=== PATIENT | female | born 1990 | race Caucasian/White ===

== ENCOUNTER 2019-02-14 22:27 | Emergency (ER) | payer OTHER ==
[~2019-02-14] VITALS: Ht 152.4 cm; Wt 52.3 kg
[2019-02-14] MEDS ORDERED: NS 1,000 ML IV ONE (23:00)
[2019-02-14] MEDS ORDERED: ONDANSETRON 4MG/2ML VIAL (J2405) IV ONE (23:00)
[2019-02-14] MEDS ORDERED: KETOROLAC 30 MG/ML VIAL (J1885) IV ONE (23:00)
[2019-02-14] MEDS ORDERED: LOES1TAB12 PO (23:18)
[2019-02-15 00:04] LABS: BASO % 0.4 % (0.0-1.0); HEMATOCRIT 44.6 % (36.0-47.0); HEMOGLOBIN 15.7 g/dl (12.0-15.5); LYMPH # 0.5 10^3/uL (1.5-6.5); LYMPH % 4.5 % (24.0-44.0); MEAN CORPUSCULAR HEMOGLOBIN 31.2 pg (27.0-33.0); MEAN CORPUSCULAR HGB CONC 35.2 g/dl (32.0-36.5); MEAN CORPUSCULAR VOLUME 88.5 fl (80.0-96.0); MONO # 0.3 10^3/uL (0.0-0.8); MONO % 2.8 % (0.0-5.0); NEUTROPHILS # 9.7 10^3/uL (1.8-7.7); NEUTROPHILS % 91.5 % (36.0-66.0); PLATELET COUNT, AUTOMATED 296 10^3/uL (150-450); RED BLOOD COUNT 5.04 10^6/uL (4.00-5.40); WHITE BLOOD COUNT 10.6 10^3/uL (4.0-10.0)
[2019-02-15 00:05] LABS: ALBUMIN 3.9 GM/DL (3.2-5.2); ALT/SGPT 13 U/L (12-78); BILIRUBIN,DIRECT 0.2 MG/DL (0.0-0.2); BILIRUBIN,TOTAL 0.6 MG/DL (0.2-1.0); BLOOD UREA NITROGEN 21 MG/DL (7-18); CALCIUM LEVEL 8.7 MG/DL (8.5-10.1); CARBON DIOXIDE LEVEL 25 MEQ/L (21-32); CHLORIDE LEVEL 107 MEQ/L (98-107); CREATININE FOR GFR 0.82 MG/DL (0.55-1.30); GLOMERULAR FILTRATION RATE > 60.0 (>60); GLUCOSE, FASTING 107 MG/DL (70-100); LIPASE 321 U/L (73-393); SODIUM LEVEL 141 MEQ/L (136-145); TOTAL PROTEIN 6.8 GM/DL (6.4-8.2)
[2019-02-15] MEDS ORDERED: ISOVUE-370 76% 100ML VIAL (Q9967) As Ordered ONE (00:18)
--- NOTE | 2019-02-15 01:43 | REPVR ---
EXAM: CT Abdomen and Pelvis With Contrast EXAM DATE/TIME: 02/15/2019 12:17 AM CLINICAL HISTORY: 28 years old, female; Upper abdominal pain. TECHNIQUE: Imaging protocol: Axial computed tomography images of the abdomen and pelvis with intravenous contrast. Coronal and sagittal reformatted images were created and reviewed. Radiation optimization: All CT scans at this facility use at least one of these dose optimization techniques: automated exposure control; mA and/or kV adjustment per patient size (includes targeted exams where dose is matched to clinical indication); or iterative reconstruction. Contrast material: ISO 370 Contrast volume: 100 ml Contrast route: IV COMPARISON: No relevant prior studies available. FINDINGS: Lower thorax: Unremarkable. ABDOMEN: Liver: Unremarkable. No liver lesion is seen. The contour of the liver is smooth. No hepatomegaly is noted. Gallbladder and bile ducts: No calcified gallstones are seen. No gallbladder wall thickening, pericholecystic fluid, or pericholecystic inflammatory changes are identified. No dilation of the intrahepatic or extrahepatic bile ducts is noted. Pancreas: Normal. No ductal dilation. Spleen: Normal. No splenomegaly. Adrenals: Normal. No mass. Kidneys and ureters: The kidneys are normal in appearance. No renal lesion is identified. No calculi are seen in the kidneys or ureters. There is no hydronephrosis or hydroureter. Stomach and bowel: There is thickening of the wall of the jejunum in the left upper quadrant of the abdomen, and there is dilation of the jejunum more proximally by up to 3.3 cm in diameter, which is fluid-filled (images 22-31 of the coronal series 202) and these findings that can be seen with a jejunitis resulting in a small bowel ileus. No intussusception, colitis, diverticulosis, diverticulitis, pneumatosis intestinalis, or internal hernia is noted. Appendix: Normal. No evidence for appendicitis. PELVIS: Bladder: Unremarkable. No calculi are noted in the bladder. Reproductive: The anteverted uterus is unremarkable. There is a 2 cm corpus luteal cyst in the left ovary. The right ovary is unremarkable. ABDOMEN and PELVIS: Intraperitoneal space: There is a trace amount of free fluid in the cul-de-sac. No intra-abdominal abscess or intraperitoneal free air is noted. Bones/joints: The imaged bony structures are intact. There is no suspicious osteolytic or osteoblastic lesion. Soft tissues: Unremarkable. Vasculature: The abdominal aorta is normal in caliber and patent. The iliac arteries, common femoral arteries, renal arteries, celiac artery, superior mesenteric artery, and inferior mesenteric artery are patent. The renal veins, hepatic veins, portal veins, splenic vein, superior mesenteric vein, and inferior mesenteric vein are patent. Lymph nodes: Normal. No enlarged lymph nodes. IMPRESSION: Thickening of the wall of the jejunum in the left upper quadrant of the abdomen, and there is dilation of the jejunum more proximally by up to 3.3 cm in diameter, which is fluid-filled and these findings that can be seen with a jejunitis resulting in a small bowel ileus. Electronically signed by: Jared Sheikh On 02/15/2019 01:43:09 AM
[2019-02-15] MEDS ORDERED: ONDA4TAB6 PO (02:09)
[2019-02-15] MEDS ORDERED: ONDANSETRON 4 MG ORAL DISINTEGRATING TAB (Q0162 PER 1MG) PO ONE (02:15)
[2019-02-15] MEDS ORDERED: ONDANSETRON 4MG/2ML VIAL (J2405) IV ONE (02:15)
[2019-02-15 02:40] VITALS: BP 136/72
== END 2019-02-15 02:36 | disposition home or self-care (01) ==
LOC: M ED 22:27
DX: K56.7 Ileus, unspecified (principal); K52.9 Noninfective gastroenteritis and colitis, unspecified; Z79.3 Long term (current) use of hormonal contraceptives
CPT/HCPCS: 74177; 80048; 80076; 81001; 81025; 83690; 85025; 87086; 96361; 96374; 96375; 96376; 99284; J1885; J2405; Q0162; Q9967

== ENCOUNTER 2023-04-02 10:16 | Day surgery (SDC) | payer OTHER ==
[~2023-04-02] VITALS: Ht 152.4 cm; Wt 55.9 kg
[~2023-04-02 10:16] MED LIST: ACETAMINOPHEN *IV* 1,000 MG IV ONE; BUPR300T92 PO; LOES1TAB12 PO; ONDA4TAB6 PO; VENL150C43 PO
[2023-04-02 10:55] LABS: HEMATOCRIT 40.1 % (36.0-47.0); HEMOGLOBIN 13.7 g/dl (12.0-15.5); MEAN CORPUSCULAR HEMOGLOBIN 30.6 pg (27.0-33.0); MEAN CORPUSCULAR HGB CONC 34.2 g/dl (32.0-36.5); MEAN CORPUSCULAR VOLUME 89.7 fl (80.0-96.0); PLATELET COUNT, AUTOMATED 299 10^3/uL (150-450); RED BLOOD COUNT 4.47 10^6/uL (4.00-5.40); WHITE BLOOD COUNT 5.2 10^3/uL (4.0-10.0)
[2023-04-02] MEDS ORDERED: LR 1,000 ML IV SCH ×2 (11:10→15:55)
[2023-04-02] MEDS ORDERED: fentaNYL 100 MCG/2 ML INJECTION As Ordered ONE (11:45)
[2023-04-02] MEDS ORDERED: MIDAZOLAM INJ 2MG/2ML VIAL As Ordered ONE (11:45)
[2023-04-02] MEDS ORDERED: ACETAMINOPHEN 1000MG 100ML IV BAG As Ordered ONE (11:46)
[2023-04-02] MEDS ORDERED: SUGAMMADEX SODIUM 500 MG/5 ML VIAL (BRIDION) As Ordered ONE (11:46)
[2023-04-02] MEDS ORDERED: ONDANSETRON 4MG 2ML VIAL As Ordered ONE (11:46)
[2023-04-02] MEDS ORDERED: propofoL 200 MG/20 ML VIAL As Ordered ONE ×3 (11:46→14:22)
[2023-04-02] MEDS ORDERED: LIDOCAINE 2% 100MG/5ML SDV (FOR ANES.) As Ordered ONE (11:46)
[2023-04-02] MEDS ORDERED: KETOROLAC 60MG 2ML VIAL As Ordered ONE (11:46)
[2023-04-02] MEDS ORDERED: ROCURONIUM BROMIDE 50MG/5ML VIAL As Ordered ONE ×2 (11:48→14:47)
[2023-04-02] MEDS ORDERED: BUPIVACAINE HCL 0.25% 30ML VIAL As Ordered ONE (14:03)
[2023-04-02] MEDS ORDERED: HYDROmorphone HCL 2MG/ML 1ML VIAL As Ordered ONE (14:31)
[2023-04-02] MEDS ORDERED: ONDANSETRON 4MG 2ML VIAL IV PRN (15:55)
[2023-04-02] MEDS ORDERED: fentaNYL 100 MCG/2 ML INJECTION IV PRN (15:55)
[2023-04-02] MEDS ORDERED: HYDROMORPHONE HCL 0.5 MG/ 0.5 ML SYRINGE IV PRN (15:55)
[2023-04-02] MEDS ORDERED: METOCLOPRAMIDE INJ 10MG/2ML VIAL IV PRN (15:55)
[2023-04-02] MEDS ORDERED: oxyCODONE 5MG TAB PO PRN (15:55)
[2023-04-02] MEDS: MEPERIDINE 25 MG/ML 1ML VIAL IV PRN ×2 (16:15→16:26)
[2023-04-02 17:20] VITALS: BP 111/68
== END 2023-04-02 17:30 | disposition home or self-care (01) ==
LOC: M SDC 10:16
PROVIDERS: ATTEND Obstetrics & Gynecology
DX: Z30.2 Encounter for sterilization (principal); F41.9 Anxiety disorder, unspecified; F32.A Depression, unspecified; Z79.899 Other long term (current) drug therapy
CPT/HCPCS: 36415; 58661; 81025; 85027; 86850; 86900; 86901; 88302; J0131; J1100; J1170; J1885; J2175; J2250; J2405; J3010; S0020